=== PATIENT | female | born 1950 | race Caucasian/White ===

== ENCOUNTER → 2017-08-18 | Outpatient (CLI) | payer OTHER ==
[~2017-08-18] MED LIST: ALLO100; CLON.1; DHEA; DIGESTIVE PROB1 EACH; Exforge 5-1601 EACH PO; HYDACE5 PO; LEVFLO500 PO; ONDA4ODT MM; THYR60; Zofran8 MG PO
[2017-08-18 19:13] LABS: Hematocrit 42.4 % (33.0-51.0); Hemoglobin 13.9 g/dL (11.5-16.0)
[2017-08-18 19:24] LABS: Albumin, Blood 3.6 g/dL (3.4-5.0); Anion Gap 8 mmol/L (6-16); Blood Urea Nitrogen 29 mg/dL (8-24); Bun/Creatinine Ratio 14.7 (12.0-20.0); CO2, Blood 23 mmol/L (21-32); Calcium, Blood 9.1 mg/dL (8.5-10.1); Chloride, Blood 109 mmol/L (98-108); Creatinine, Blood 1.97 mg/dL (0.40-1.00); Glomerular Filtration Rate 27 (60-); Glucose, Blood 150 mg/dL (70-99); Phosphorus, Blood 2.6 mg/dL (2.5-4.9); Potassium, Blood 4.5 mmol/L (3.5-5.5); Sodium, Blood 140 mmol/L (136-145)
== END | disposition home or self-care (01) ==
LOC: OLS 16:13
PROVIDERS: Internal Medicine
DX: N18.9 Chronic kidney disease, unspecified (principal); D63.1 Anemia in chronic kidney disease; M10.9 Gout, unspecified
CPT/HCPCS: 36415; 80069; 83970; 84550; 85014; 85018

== ENCOUNTER → 2018-01-04 | Outpatient (CLI) | payer OTHER ==
[~2018-01-04] MED LIST changes: -ALLO100; -CLON.1; -DHEA; -DIGESTIVE PROB1 EACH; -THYR60
[2018-01-05 13:51] LABS: Stool Occult Bld Immuno 1 Negative (NEGATIVE)
== END | disposition home or self-care (01) ==
LOC: LAB EV 09:30
PROVIDERS: Family Medicine
DX: Z12.11 Encounter for screening for malignant neoplasm of colon (principal)
CPT/HCPCS: G0328

== ENCOUNTER 2018-04-12 06:41 | Day surgery (SDC) | payer OTHER ==
[~2018-04-12] VITALS: Ht 172.7 cm; Wt 116.6 kg
[2018-04-12] MEDS ORDERED: CLON.1 (07:31)
[2018-04-12] MEDS ORDERED: ALLO100 (07:31)
[2018-04-12] MEDS ORDERED: DIGESTIVE PROB1 EACH (07:32)
[2018-04-12] MEDS ORDERED: DHEA (07:32)
[2018-04-12] MEDS ORDERED: THYR60 (07:32)
== END 2018-04-12 09:15 | disposition home or self-care (01) ==
LOC: ORSCSDS 06:41
PROVIDERS: Orthopaedic Surgery
PROC: 01N54ZZ Release Median Nerve, Percutaneous Endoscopic Approach (ICD-10-PCS; principal; 2018-04-12 08:00)
DX: G56.02 Carpal tunnel syndrome, left upper limb (principal); E03.9 Hypothyroidism, unspecified; G47.33 Obstructive sleep apnea (adult) (pediatric); J45.909 Unspecified asthma, uncomplicated; I12.9 Hypertensive chronic kidney disease with stage 1 through stage 4 chronic kidney disease, or unspecified chronic kidney disease; N18.9 Chronic kidney disease, unspecified; Z79.899 Other long term (current) drug therapy
CPT/HCPCS: 82947; J0690; J2250; J3010; J7120

== ENCOUNTER → 2018-09-04 | Outpatient (CLI) | payer MEDICARE ==
[~2018-09-04] MED LIST changes: +ALLO100; +CLON.1; +DHEA; +DIGESTIVE PROB1 EACH; +THYR60
[2018-09-04 18:06] LABS: Source, Urine Clean Catch
[2018-09-04 18:23] LABS: Appearance, Urine Hazy (Clear); Bilirubin, Urine Neg (Neg); Blood, Urine 1+ (Neg); Color, Urine Yellow (P-Yellow); Glucose Qualitative, Urine Neg (Neg); Ketones, Urine Neg (Neg); Leukocyte Esterase, Urine 3+ (Neg); Nitrite, Urine Pos (Neg); Protein, Urine 3+ (Neg); Specific Gravity, Urine 1.015 (1.003-1.022); Urobilinogen, Urine NORM (Normal)
[2018-09-04 18:31] LABS: Red Blood Cells, Urine 0-2 /hpf (0-2); White Blood Cells, Urine TNTC /hpf (0-5)
[2018-09-04 18:32] LABS: Bacteria Many /hpf; Squamous Epithelial Cells Mod /hpf (Few)
== END | disposition home or self-care (01) ==
LOC: LAB SHORT 16:30 → LAB 16:30
PROVIDERS: Registered Nurse
DX: R82.90 Unspecified abnormal findings in urine (principal)
CPT/HCPCS: 81001; 87077; 87086; 87147; 87186

== ENCOUNTER → 2019-06-04 | Outpatient (CLI) | payer MEDICARE | END | disposition home or self-care (01) | LOC: LAB 10:00 → LAB SHORT 10:00 | DX: R35.0 Frequency of micturition (principal) | CPT/HCPCS: 87077; 87086; 87186 ==

== ENCOUNTER → 2021-08-26 | Outpatient (CLI) | payer MEDICARE ==
[2021-08-26 16:32] LABS: Creatinine, Urine Random 77.1 mg/dL (27.00-270.00); Protein/Creat Ratio, Ur Random 0.4
== END | disposition home or self-care (01) ==
LOC: LAB SHORT 12:30
PROVIDERS: Internal Medicine Nephrology
DX: I12.9 Hypertensive chronic kidney disease with stage 1 through stage 4 chronic kidney disease, or unspecified chronic kidney disease (principal); N18.32 Chronic kidney disease, stage 3b
CPT/HCPCS: 82570; 84156

== ENCOUNTER → 2021-10-09 | Outpatient (CLI) | payer MEDICARE | END | disposition home or self-care (01) | LOC: LAB 16:30 → LAB SHORT 16:30 | DX: R30.0 Dysuria (principal) | CPT/HCPCS: 87086; 87147 ==

== ENCOUNTER → 2022-07-29 | Outpatient (CLI) | payer MEDICARE | LOC: LAB SHORT 10:09 → LAB 10:09 | DX: R30.0 Dysuria (principal) | CPT/HCPCS: 87077; 87086; 87186 ==

== ENCOUNTER 2022-11-03 00:33 | Observation (INO) | payer MEDICARE ==
[~2022-11-03] VITALS: Ht 167.6 cm; Wt 117.0 kg
[2022-11-03] MEDS ORDERED: Primidone50 MG PO (01:09)
[2022-11-03] MEDS ORDERED: AMLODIPINE BESY10 MG PO (01:09)
[2022-11-03] MEDS ORDERED: COLCRYS0.6 M1 PO (01:09)
[2022-11-03] MEDS ORDERED: THYR60 PO (01:10)
[2022-11-03 02:58] LABS: Influenza A, PCR NEGATIVE (NEGATIVE); Influenza B, PCR NEGATIVE (NEGATIVE); Resp Syncytial Virus, PCR NEGATIVE (NEGATIVE); SARS-Cov-2 (COVID-19) PCR, MMC NEGATIVE (NEGATIVE)
[2022-11-03 04:47] LABS: BASOPHILS ABSOLUTE AUTO 0.03 K/mm3 (0.00-0.23); BASOPHILS PERCENT AUTO 1 % (0-2); EOSINOPHILS ABSOLUTE AUTO 0.27 K/mm3 (0.00-0.68); EOSINOPHILS PERCENT AUTO 5 % (0-6); Hematocrit 41.1 % (33.0-51.0); Hemoglobin 13.2 g/dL (11.5-16.0); IMMATURE GRAN ABSOLUTE AUTO 0.01 K/mm3 (0.00-0.10); IMMATURE GRAN PERCENT AUTO 0 % (0-1); LYMPHOCYTES ABSOLUTE AUTO 1.37 K/mm3 (0.84-5.20); LYMPHOCYTES PERCENT AUTO 25 % (21-46); MONOCYTES ABSOLUTE AUTO 0.45 K/mm3 (0.16-1.47); MONOCYTES PERCENT AUTO 8 % (4-13); Mean Corpuscular HGB 30.4 pg (26.0-34.0); Mean Corpuscular HGB Conc 32.1 g/dL (31.5-36.5); Mean Corpuscular Volume 95 fL (80-100); Mean Platelet Volume 8.9 fL (9.1-12.4); NEUTROPHILS ABSOLUTE AUTO 3.31 K/mm3 (1.96-9.15); NEUTROPHILS PERCENT AUTO 61 % (41-73); Platelet Count 215 K/mm3 (150-400); RDW Coefficient Variation 14.7 % (11.7-14.2); RDW Standard Deviation 51.6 fL (35.1-46.3); Red Blood Cell Count 4.34 M/mm3 (3.80-5.20); White Blood Cell Count 5.44 K/mm3 (4.00-11.30)
[2022-11-03 05:04] LABS: Calcium, Blood 9.2 mg/dL (8.5-10.1); Creatinine, Blood 1.84 mg/dL (0.40-1.00); Potassium, Blood 4.2 mmol/L (3.5-5.5)
[2022-11-03] MEDS ORDERED: PROG100 PO (11:08)
[2022-11-03] MEDS ORDERED: LOSA50 PO (11:09)
[2022-11-03] MEDS ORDERED: AZIT250 PO (15:35)
[2022-11-03] MEDS ORDERED: ACET325 PO (15:38)
[2022-11-03] MEDS ORDERED: BENZ100A PO (15:39)
--- NOTE | 2022-11-03 16:13 | NUR ---
PATIENT DISCHARGED HOME AT THIS TIME, WHEELED IN WHEELCHAIR BY RENE TO CAR. AOX4, INDEPENDENT IN ROOM. NO DISTRESS NOTED, SATTING WELL ON ROOM AIR MID 90S.
== END 2022-11-03 16:17 | disposition home or self-care (01) ==
LOC: ER 00:33 → MEDS 00:34 → ER 05:47 → MEDS 05:47
PROVIDERS: Emergency Medicine; ADMIT Internal Medicine
DX: G47.33 Obstructive sleep apnea (adult) (pediatric) (principal); M1A.9XX0 Chronic gout, unspecified, without tophus (tophi); I12.9 Hypertensive chronic kidney disease with stage 1 through stage 4 chronic kidney disease, or unspecified chronic kidney disease; J40 Bronchitis, not specified as acute or chronic; N18.4 Chronic kidney disease, stage 4 (severe); Z91.14 Patient's other noncompliance with medication regimen; R06.02 Shortness of breath; J06.9 Acute upper respiratory infection, unspecified; Z20.822 Contact with and (suspected) exposure to COVID-19
CPT/HCPCS: 0241U; 36415; 71045; 80048; 83605; 84145; 85025; 94640; 94664; 96365; 96366; 96367; 99285-25; A9270; J0456; J0696; J1100; J7030; J7050

== ENCOUNTER 2024-01-23 10:57 | Day surgery (SDC) | payer OTHER ==
[~2024-01-23] VITALS: Ht 157.5 cm; Wt 119.6 kg
[~2024-01-23 10:57] MED LIST changes: +ACET325 PO; +AMLODIPINE BESY10 MG PO; +AZIT250 PO; +BENZ100A PO; +Balanced Salt Epinephrine Irrigation Solution 500 mL IR SCH; +COLCRYS0.6 M1 PO; +LOSA50 PO; +Lidocaine HCl/Pf 1% 5 ML VIAL XX SCH; +Moxifloxacin HCL 0.5 MG/0.1 ML 0.4MLSYR LEFTEYE SCH; +NS 1,000 ML ONE; +NS 500 ML IV ONE; +PHENYLEPHRINE\\TROPICAMIDE\\TETRACAINE OPHTHALMIC DILATING SOLN LEFTEYE PRN; +PROG100 PO; +Povidone-Iodine 450 DROP/30 ML Solution LEFTEYE SCH; +Primidone50 MG PO; +THYR60 PO
[2024-01-23] MEDS ORDERED: Midazolam HCl 1MG / ML 2ML Vial ONE ×2 (11:22→11:50)
[2024-01-23] MEDS ORDERED: NS 1,000 ML IV ONE (11:26)
[2024-01-23] MEDS ORDERED: Tetracaine HCl 0.5% Opth Soln 15 ml LEFTEYE ONE (11:55)
[2024-01-23 13:02] VITALS: BP 136/70
== END 2024-01-23 12:45 | disposition home or self-care (01) ==
LOC: ORSCSDS 10:57
PROVIDERS: Student in an Organized Health Care Education/Training Program
PROC: 08RK3JZ Replacement of Left Lens with Synthetic Substitute, Percutaneous Approach (ICD-10-PCS; principal; 2024-01-23 12:00)
DX: H25.812 Combined forms of age-related cataract, left eye (principal); Z96.1 Presence of intraocular lens; I12.9 Hypertensive chronic kidney disease with stage 1 through stage 4 chronic kidney disease, or unspecified chronic kidney disease; N18.32 Chronic kidney disease, stage 3b; E03.9 Hypothyroidism, unspecified; G47.33 Obstructive sleep apnea (adult) (pediatric); J45.909 Unspecified asthma, uncomplicated; M10.9 Gout, unspecified; Z79.899 Other long term (current) drug therapy
CPT/HCPCS: J2250; J7040; V2632